=== PATIENT | female | born 1990 | race Caucasian/White ===

== ENCOUNTER 2016-08-31 18:35 | Emergency (ER) | payer MEDICAID ==
--- NOTE | 2016-09-01 19:14 | ER ---
ADMIT: 08/31/2016 RM/LOC: ER [facility] MR#: [id number] [address] [facility] [address] [place], [place] [id number] JEB GOMES [address] [address] Emergency Room Report SEX: F AGE: 25 : 1990 DATE: 08/31/2016 HISTORY OF PRESENT ILLNESS: She is having head pain and abdominal pain. She says something is making sounds in her head and telling her that she is . She feels like something is moving in her abdomen. This is a female with bipolar epilepsy and anxiety disorder, has been trying to get for the last six years. Says that she recently had sex with her and that she thinks she could be . PAST MEDICAL HISTORY: Mentioned already. REVIEW OF SYSTEMS: Positive for anxiety. MEDICATIONS: Depakote, among others she cannot remember what they are, but they are psych medications. ALLERGIES: NO ALLERGIES. SOCIAL HISTORY: She used to smoke, and she quit 5 days ago also she mentions. PHYSICAL EXAMINATION: VITAL SIGNS: Vitals within normal limits. ABDOMEN: Generalized abdominal discomfort, nothing specific. No psoas or Rovsing. No McBurney's point tenderness. PELVIC: No vaginal bleeding, although she reported having some brownish discharge. No discharge. No cervical motion tenderness. No enlarged or tender uterus. LABORATORY DATA: Wet mount clue cells, negative. Valproic 65.9 and normal. Chlamydia negative. Urine is negative, ketones 1+, blood 2+. CLINICAL IMPRESSION: Menses generalized abdominal pain, NOS, and gastritis. Given GI cocktail and encouraged to follow up with primary provider. She has walked out of the ER feeling pretty good and said the GI cocktail did help her. PETEY Bernard / Brad Reid MD / modl JOB #: [id number] CC: Matthieu Kang MD, Attending Physician Ortiz Jules MD, Family Physician
== END 2016-08-31 22:40 | disposition home or self-care (01) ==
LOC: ER 18:35
DX: K29.70 Gastritis, unspecified, without bleeding (principal); N94.89 Other specified conditions associated with female genital organs and menstrual cycle; G40.919 Epilepsy, unspecified, intractable, without status epilepticus; F31.9 Bipolar disorder, unspecified; F41.9 Anxiety disorder, unspecified; Z87.891 Personal history of nicotine dependence